=== PATIENT | female | born 1985 | race Hispanic/Latino ===

== ENCOUNTER 2016-07-04 21:04 | Emergency (ER) | payer BC ==
[2016-07-04 21:11] VITALS: BP 130/68; PULSE 83; RESP 16; TEMP 98; O2SAT 100
[2016-07-04] MEDS ORDERED: Lactated Ringer's 1,000 ML IV STA (21:26)
[2016-07-04 21:56] LABS: BASO # 0.1 K/uL (0.0-0.2); BASO % 0.6 % (0.0-2.0); EOS # 0.3 K/uL (0.0-0.7); EOS % 2.6 % (0.0-4.0); HEMATOCRIT 35.7 % (34.0-47.0); LYMPH # 2.4 K/uL (1.0-4.3); LYMPH % 22.4 % (20.0-40.0); MEAN CELL VOLUME 93.3 fl (81.0-99.0); MEAN CORPUSCULAR HEMOGLOBIN 31.6 pg (27.0-31.0); MEAN CORPUSCULAR HGB CONC 33.9 g/dL (33.0-37.0); MEAN PLATELET VOLUME 7.9 fl (7.2-11.7); MONO # 0.9 K/uL (0.0-0.8); MONO % 8.8 % (0.0-10.0); NEUT % 65.6 % (50.0-75.0); RED CELL DISTRIBUTION WIDTH 13.8 % (11.5-14.5); WHITE BLOOD COUNT 10.6 K/uL (4.8-10.8)
[2016-07-04 22:07] LABS: ALB/GLOB RATIO 1.2 (1.0-2.1); ALKALINE PHOSPHATASE 63 U/L (38-126); ALT/SGPT 36 U/L (9-52); AST/SGOT 32 U/L (14-36); BILIRUBIN,TOTAL 0.2 mg/dl (0.2-1.3); BLOOD UREA NITROGEN 10 mg/dl (7-17); CALCIUM 9.2 mg/dL (8.4-10.2); CARBON DIOXIDE 23 mmol/L (22-30); CHLORIDE 104 mmol/L (98-107); GFR AFRICAN-AMERICAN > 60; GLUCOSE,RANDOM 93 mg/dL (65-105); POTASSIUM 3.7 MMOL/L (3.6-5.0); SODIUM 141 mmol/l (132-148); TOTAL PROTEIN 6.7 G/DL (6.3-8.2)
--- NOTE | 2016-07-04 23:34 | ED PDOC ---
HPI: General Adult Time Seen by Provider: 07/04/16 21:19 Chief Complaint (Nursing): Abdominal Pain Chief Complaint (Provider): pelvic cramping History Per: Patient History/Exam Limitations: no limitations Onset/Duration Of Symptoms: Days Have you had recent travel within the past 21 days to any of the following countries: [place], [place], [place] or [place]?: No Current Symptoms Are (Timing): Still Present Additional Complaint(s): 31yo female currently 18 weeks and with hx of miscarriage at 10 weeks in January 2016 presents to the ED with c/o pelvic cramping. Patient reports for the past week she has had daily pelvic cramping usually in the evening. Cramping has been getting worse and more prolonged. Associated with nausea in the evening, but today she did not have nausea and because of that came to the ED because she was concerned of possible miscarriage. Denies vaginal bleeding/discharge, urinary symptoms, v/d, constipation. Last US was at 12 weeks and was normal. Saw OB 2 weeks ago and detected heart with doppler at that time. Goes to [employer]. Past Medical History Reviewed: Historical Data, Nursing Documentation, Vital Signs Vital Signs: Last Vital Signs Temp 98.0 F 07/04/16 21:08 Pulse 83 07/04/16 21:08 Resp 16 07/04/16 21:08 BP 130/68 07/04/16 21:08 Pulse Ox 100 07/05/16 01:05 - Medical History PMH: No Chronic Diseases - Surgical History Surgical History: No Surg Hx - Family History Family History: States: No Known Family Hx - Social History Current smoker - smoking cessation education provided: No Alcohol: None Drugs: Denies - Allergies Allergies/Adverse Reactions: Allergies Allergy/AdvReac Type Severity Reaction Status Date / Time No Known Allergies Allergy Verified 07/04/16 21:08 Review of Systems ROS Statement: Except As Marked, All Systems Reviewed And Found Negative Gastrointestinal: Negative for: Vomiting, Diarrhea, Constipation Genitourinary Female: Positive for: Other (pelvic cramping ). Negative for: Dysuria, Frequency, Incontinence, Hematuria, Vaginal Discharge, Vaginal Bleeding Physical Exam - Reviewed Nursing Documentation Reviewed: Yes Vital Signs Reviewed: Yes - Physical Exam Appears: Positive for: Well, No Acute Distress Head Exam: Positive for: ATRAUMATIC, NORMAL INSPECTION, NORMOCEPHALIC Skin: Positive for: Normal Color, Warm, Dry Eye Exam: Positive for: Normal appearance, EOMI, PERRL ENT: Positive for: Normal ENT Inspection Neck: Positive for: Normal, Painless ROM, Supple Cardiovascular/Chest: Positive for: Regular Rate, Rhythm. Negative for: Murmur , Tachycardia Respiratory: Positive for: Normal Breath Sounds. Negative for: Wheezing, Respiratory Distress Gastrointestinal/Abdominal: Positive for: Other (gravid less than 20 weeks, negative McBurney's point and Serra's sign ). Negative for: Tenderness, Mass, Guarding, Rebound Back: Positive for: Normal Inspection. Negative for: L CVA Tenderness, R CVA Tenderness Extremity: Positive for: Normal ROM. Negative for: Deformity, Swelling Neurologic/Psych: Positive for: Alert, Oriented, Mood/Affect (anxious ) - Laboratory Results Result Diagrams: 07/04/16 21:50 07/04/16 21:50 - ECG O2 Sat by Pulse Oximetry: 100 Pulse Ox Interpretation: Normal (RA) Medical Decision Making Medical Decision Makin: Impression: pelvic cramping at 18 weeks DDx: UTI vs. dehydration vs. demise vs. normal Plan: Labs Lactated Ringer's 1000ml IV US OB reassess Scribe Attestation: Documented by Claudia Mueller acting as a scribe for Sol Berger MD. Provider Scribe Attestation: All medical record entries made by the Scribe were at my direction and personally dictated by me. I have reviewed the chart and agree that the record accurately reflects my personal performance of the history, physical exam, medical decision making, and the department course for this patient. I have also personally directed, reviewed, and agree with the discharge instructions and disposition. Disposition - Clinical Impression Clinical Impression: Abdominal pain in - Disposition Disposition Time: 00:00 Condition: STABLE Patient Signed Over To: Adria Norman Handoff Comments: Pending ER workup, reassessment and final ER disposition
--- NOTE | 2016-07-05 00:12 | ED PDOC ---
- Laboratory Results Result Diagrams: 07/04/16 21:50 07/04/16 21:50 - ECG O2 Sat by Pulse Oximetry: 100 Medical Decision Making Medical Decision Making: Patient s/o from Dr. Berger at 0000 pending US. 0019: US OB impression: Single intrauterine gestation with an approximate gestational age of 18 weeks. cardiac activity and motion are detected. The placenta is anterior and low-lying. The cervix is closed. Findings at the periphery of the placenta suggesting the presence of a placental robles, for which shortterm followup is recommended. 0035: Significance of US findings discussed at length with patient who verbalized understanding. Advised f/u w/ TEST GRADER in 48 hours at [facility]. Patient stable for d/c. Dx: abdominal pain in stable Scribe Attestation: Documented by Claudia Mueller acting as a scribe for Adria Norman MD. Provider Scribe Attestation: All medical record entries made by the Scribe were at my direction and personally dictated by me. I have reviewed the chart and agree that the record accurately reflects my personal performance of the history, physical exam, medical decision making, and the department course for this patient. I have also personally directed, reviewed, and agree with the discharge instructions and disposition. Disposition Counseled Patient/Family Regarding: Studies Performed, Diagnosis, Need For Followup - Clinical Impression Clinical Impression: Abdominal pain in - POA Present On Arrival: None - Disposition Disposition: Routine/Home Disposition Time: 00:35 Condition: STABLE Additional Instructions: Please follow up with your [employer] [facility] [employer] in 2 days Instructions: Abdominal Pain in (ED)
--- NOTE | 2016-07-05 00:20 | US ---
EXAM: US Uterus, Limited CLINICAL HISTORY: 31 years old, female; Pain; complicated by abdominal or pelvic pain; Lower; Second trimester; Gestational age or lmp: 03/03/2016; ; Patient HX: Pelvic pain, pt states HX: Miscarriage 01/2016; Additional info: Pelvic pain R/O demise TECHNIQUE: Real-time ultrasound of the maternal uterus (limited) with image documentation. COMPARISON: No relevant prior studies available. FINDINGS: Single intrauterine gestation with anatomic measurements corresponding to an approximate gestational age of 18 weeks and 0 days. cardiac activity is identified at a rate of 161 beats per minute. motion is also detected. The placenta is anterior and low-lying measuring approximately 1.3 cm away from the os. The cervix measures 4.5 cm, and is closed. An indeterminate focus of decreased echogenicity is identified within the placenta, at the interface of the bladder possibly a placental robles. Despite prolonged interrogation, the left ovary was nonvisualized. An 18 mm focus of decreased echogenicity is identified within the right ovary, likely a corpus luteal cyst. IMPRESSION: Single intrauterine gestation with an approximate gestational age of 18 weeks. cardiac activity and motion are detected. The placenta is anterior and low-lying. The cervix is closed. Findings at the periphery of the placenta suggesting the presence of a placental robles, for which short-term followup is recommended. The
== END 2016-07-05 00:26 | disposition home or self-care (01) ==
LOC: H.ER 21:04
DX: O26.899 Other specified pregnancy related conditions, unspecified trimester (principal); Z3A.18 18 weeks gestation of pregnancy; R10.2 Pelvic and perineal pain
CPT/HCPCS: 76815; 80053; 81025; 85025; 99282; J7120